=== PATIENT | female | born 1975 | race Caucasian/White ===

== ENCOUNTER 2025-10-13 08:14 | Day surgery (SDC) | payer MEDICARE, MEDICAID, SELFPAY ==
--- OUTSIDE RECORDS SUMMARY | 2025-10-02 14:51 | XMS_ITS | Clinical Summary ---
Author Organization [facility] [address] [facility] lding Address [address] [place] [address] Phone Care Team Providers Care Validation Leader Name Role Phone Franchesca Moulton MD Primary Care Prov ider Allergies Active Allergy Reactions Criticality Noted Date Comments Flu Virus Vaccine Tv 2015- (18 Yr And Up),Recomb Shortness of breath,Swelling,Wheezi ng High 10/07/2010 Throat felt like closing Swelling/edema Medications tiZANidine (ZANAFLEX) 4 mg tablet TAKE 1 TABLET BY MOUTH EVERY 8 HOURS NEEDED FOR MUSCLE SPASMS 04/09/20 24 Active triamcinolone (KENALOG) 0.025 % cream Apply to affected area 3-4x/day prn for irritation 05/18/20 23 Active Maria T-Lanta 200-200-20 mg/5 mL suspension TAKE 30 ML BY MOUTH 4 TIMES DAILY (BEFORE MEALS AND NIGHTLY). 1775 mL 11 10/22/20 24 Active medroxyPROGES TERone 150 mg/mL injection Inject 1 mL (150 mg total) into the shoulder, thigh, or buttocks every 3 (three) months. 1 mL 3 04/16/20 25 Active Ventolin HFA 90 mcg/actuation inhaler INHALE 2 PUFFS INTO THE LUNGS 4 TIMES DAILY NEEDED FOR COUGH OR WHEEZING. 54 g 06/02/20 25 Active sertraline (ZOLOFT) 100 mg tablet TAKE 2 TABLETS BY MOUTH EVERY DAY 180 tablet 1 07/11/20 25 Active sucralfate (CARAFATE) 1 gram tabletIndicat ions:Menopaus al flushing Take 1 tablet (1 g total) by mouth 4 (four) times a day (before meals and nightly). Take 1 Tablet by mouth 4 times daily for 360 days. 360 tablet 1 07/11/20 25 Active methenamine hippurate (HIPREX) 1 gram tablet TAKE 1 TABLET BY MOUTH TWICE A DAY WITH FOOD 180 tablet 1 07/14/20 25 Active ibuprofen (ADVIL,MOTRIN ) 600 mg tabletIndicat ions:Rectal abscess TAKE 1 TABLET BY MOUTH EVERY 6 HOURS NEEDED FOR PAIN 360 tablet 07/14/20 25 Active traZODone (DESYREL) 50 mg tabletIndicat ions:Generali zed anxiety disorder TAKE 1 TO 2 TABLETS BY MOUTH EVERY DAY AT NIGHT 180 tablet 08/11/20 25 Active estradiol-nor ethindrone (Mimvey) 1-0.5 mg per tablet Take 1 tablet by mouth 1 (one) time each day. 30 tablet 08/19/20 25 Active Additional Information Patient not taking.Reported on 09/10/2025 norethindrone -ethinyl estradiol (Fyavolv) 1-5 mg-mcg per tabletIndicat ions:Hot flashes Take 1 tablet by mouth 1 (one) time each day. 84 tablet 1 08/21/20 25 Active diclofenac (VOLTAREN) 1 % topical gel Apply 4 g topically 4 (four) times a day. 200 g 1 08/22/20 25 Active hydrOXYzine HCL (ATARAX) 50 mg tablet TAKE 1 TABLET BY MOUTH THREE TIMES A DAY NEEDED FOR ANXIETY 270 tablet 08/26/20 25 Active simethicone (Gas Relief Extra Strength) 125 mg chewable tablet TAKE 1 TABLET BY MOUTH 4 TIMES DAILY 360 tablet 08/26/20 25 Active evening primrose oil 500 mg Take daily in the evening 90 capsule 3 09/10/20 25 Active traMADoL (ULTRAM) 50 mg tabletIndicat ions:Rectal abscess Take 1 tablet (50 mg total) by mouth every 6 (six) hours if needed for severe pain. Max Daily Amount: 200 mg 45 tablet 09/29/20 25 Active LORazepam (ATIVAN) 0.5 mg tabletIndicat ions:Generali zed anxiety disorder Take 1 tablet (0.5 mg total) by mouth every 6 (six) hours if needed for anxiety. for anxiety 20 tablet 2 09/29/20 Active LORazepam (ATIVAN) 0.5 mg tablet TAKE 1 TABLET BY MOUTH EVERY 6 HOURS NEEDED FOR ANXIETY 20 tablet 2 05/13/20 25 025 Discontinued(Re order) traMADoL (ULTRAM) 50 mg tabletIndicat ions:Rectal abscess Take 1 tablet (50 mg total) by mouth every 6 (six) hours if needed for severe pain. Max Daily Amount: 200 mg 45 tablet 08/14/20 25 025 Discontinued cephalexin (KEFLEX) 500 mg capsule Take 1 capsule (500 mg total) by mouth 2 (two) times a day for 10 days. 20 each 09/10/20 25 025 mupirocin (BACTROBAN) 2 % ointment Apply topically 3 (three) times a day for 7 days. 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 Dr. Galvez Bx neg. Abnormal mammogram 05/27/2019 Overview (08/22/2024): 06/07- 6 month followup mammogram recommended, already referred to General Surgery and followup for consideration of clip/4mm septated cyst aspiration or bx. Sliding hiatal hernia 01/09/2019 Overview (08/22/2024): 2/- small, noted on barium swallow 01/09 Lap fundoplication Benign liver cyst 06/12/2018 Overview (08/22/2024): 06/06- liver cyst- 6 month sono 01/08- stable- followup 12 months Chronic cholecystitis 09/08/2016 Overview (08/22/2024): 01/07- per patient states removed ~2015 Chronic constipation 07/22/2016 Overview (08/22/2024): 01/07- referred to GI Abnormal urine finding 07/07/2014 Overview (08/22/2024): 07/03 positive cocaine. Obesity (BMI 30-39.9) 01/18/2012 Generalized anxiety disorder 05/29/2007 Overview (08/22/2024): ativan daily Constipation 07/19/2006 Overview (08/22/2024): 06/25 IMO update Backache 04/13/2006 Overview (08/22/2024): Chronic IMO update Depression 04/13/2006 Chronic GERD 04/13/2006 Overview (08/22/2024): EGD 09/04.. Non critical distal esophageal ring 09/07 EGD stable ring. esophagitis History of tobacco abuse 04/13/2006 Encounters Date Type Department Care Team Description 09/10/2025 8:15 AM EDT Office Visit Obstetrics and Gynecology [address] [address] Dylon Romero CNM Boil (Primary Dx) 09/10/2025 Telephone Obstetrics and Gynecology [facility] [address] [place] [address] Dylon Romero CNM 09/04/2025 Telephone Obstetrics and Gynecology [facility] [address] [place] [address] Dylon Romero CNM 08/27/2025 2:30 PM EDT Consult Orthopedic Surgery - [place] [address] [place] [address] Scarlett Garcia PA De Quervain's tenosynovitis (Primary Dx); Carpal tunnel syndrome of right wrist 08/22/2025 1:58 PM EDT - 08/22/2025 11:59 PM EDT Hospital Encounter XRAY - [facility] [address] [place] [address] Right wrist pain Discharge Disposition: Home or Self Care 08/22/2025 1:00 PM EDT Office Visit Adult [facility] [address] [place] [address] Milton Boss PA Right wrist pain (Primary Dx); Hot flashes 08/22/2025 Results Follow-Up Adult [facility] [address] [place] [address] Milton Boss PA 08/08/2025 10:45 AM EDT - 08/08/2025 11:59 PM EDT [facility] [address] [place] [phone] Upper respiratory tract infection, unspecified type Discharge Disposition: Home or Self Care 08/08/2025 10:30 AM EDT Office Visit [facility] [address] [place] [address] Milton Boss PA Upper respiratory tract infection, unspecified type (Primary Dx); History of tobacco abuse from Last 3 Months Immunizations Immunization Administration Dates Next Due Influenza trivalent, with pr eservative (Fluzone; Afluria) 6mo and older 10/06/2010 Moderna SARS-CoV-2 COVID-19, mRNA, LNP-S, preservative free 10/09/2021,04/06/2021,03/09/2021 Td Tetanus diptheria (Tdvax) 7yo and older 06/23 Td, Unspecified 06/23/2003 Tdap Tetanus diptheria acell ular pertussis (Boostrix; Adacel) 7yo and older 07/12/2012 Surgical History Surgery Date Site/Laterality Comments OTHER SURGICAL HISTORY 12/2019 PROCEDURE: LAPAROSCOPIC FUNDOPLASTY BREAST BIOPSY 06/03/2019 Right PROCEDURE: BX BREAST; PERC NEEDLE CORE W/IMAG GUID; COMMENT: neg OTHER SURGICAL HISTORY 07/11/2019 Right PROCEDURE: VT BX BREAST W/DEVICE 1ST LESION STEREOTACTIC GUID; COMMENT: apocine metaplastic microcysts ESOPHAGUS SURGERY SHOULDER ARTHROSCOPY W/ ROTATOR CUFF REPAIR Left Medical History Medical History Date Comments Tobacco use disorder DX:Tobacco use disorder Adjustment disorder with dep ressed mood DX:Adjustment disorder with depressed mood Heartburn DX:Heartburn Gonorrhea 01/2008 DX:Gonorrhea Esophageal reflux DX:Esophageal reflux Anxiety state, unspecified 10/25/2006 DX:An xiety state, unspecified Gonorrhea 03/12/2008 DX:Gonorrhea Chronic constipation 07/22/2016 DX:Chronic constipation Perirectal abscess 11/24/2020 DX:Perirectal abscess; COMMENT: Had surgery 2019 Status post laparoscopic Nis sen fundoplication DX:Status post laparoscopic Savana fundoplication Abdominal bloating DX:Abdominal bloating Gassiness DX:Gassiness Bloating DX:Bloating Shortness of breath Arthritis Joint pain Lumbar radiculopathy, chronic Family History Medical History Relation Name Comments Diabetes Father Heart attack Maternal Grandfather Hypertension Mother Other: Other Mother cripple diseas e unsure of name Heart attack Paternal Grandfather Breast cancer Neg Hx Colon cancer Neg Hx Ovarian cancer Neg Hx Pancreatic cancer Neg Hx Uterine cancer Neg Hx Relation Name Status Comments Brother Alive Daughter Alive Father Alive Maternal Grandfather Maternal Grandmother Mother Alive Paternal Grandfather Alive Paternal Grandmother Social History Tobacco Use Types Packs/Day Years Used Date Smoking Tobacco: Former Cigarettes 0.5 33.6 S tarted: 1992 Smokeless Tobacco: Never Tobacco Cessation:Counseling Given: Not Answered Alcohol Use Standard Drinks/Week Comments Yes 0 (1 standard drink = 0.6 oz pur e alcohol) occasionally Interpersonal Safety Answer Date Record ed Physical Abuse Unrecognized value 04/29/2025 Verbal Abuse Unrecognized value 04/29/2025 Comments No Sex and Gender Information Value Date Recorded Sex Assigned at Female 10/29/2024 7:37 AM EST Legal Sex Female 10:31 AM EST Gender Identity Female 10/29/2024 7:37 AM EST Sexual Orientation Straight 10/29/2024 7: 37 AM EST Obstetrics History Para Term AB IAB SAB Ectopic Multiple Livin g Live Births 1 1 1 1 1 Date Outcome GA Total Labor Labor/2nd/3rd Weight Sex Type Anes PTL Ninfa A1 A5 Name Clin 994 Term 40w 0d 3459 g (122 oz) F Vag-S pont Livin g Lucinda e Delivery Location:[facility] Last Filed Vital Signs Vital Sign Reading Time Taken Comments Blood Pressure 123/83 09/10/2025 8:05 AM EDT Pulse 70 09/10/2025 8:05 AM EDT Temperature 36.5 C (97.7 F) 08/22/2025 1:04 PM EDT Respiratory Rate 16 08/27/2025 2:24 PM EDT Oxygen Saturation 96% 08/08/2025 10:32 AM EDT Inhaled Oxygen Concentration - - Weight 79.8 kg (176 lb) 09/10/2025 8:05 AM EDT Height 152.4 cm (5') 08/27/2025 2:24 PM EDT Body Mass Index 34.37 08/27/2025 2:24 PM EDT Plan of Treatment Upcoming Encounters Date Type Department Care Team (Late st Contact Info) Description 10/09/2025 10:00 AM EST Appointment Radiology Department [address] [phone] 10/15/2025 11:30 AM EST Office Visit Adult Medicine [facility] [address] [place] [phone] Franchesca Moulton MD [address] [place] [address] 11/18/2025 2:45 PM EST Consult General Surgery - [address] [place] [address] Yoselin Apple MD [address] [place] [phone] Health Maintenance Due Date Last Done Comments Colorectal Cancer Screening: Colonoscopy 1976 Hepatitis A Vaccines (1 of 2 - Risk 2-dose series) 02/10/1995 Medicare Annual Wellness Visit 10/29/2022 Depression Screening 11/20/2024 11/08/2024 Breast Cancer Screening 05/03/2026 05/03/20, 05/03/2024, 04/02/2024, Additional history exists Cholesterol Screening (Lipid Panel) 12/11/2029 12/11/2024, 06/06/2018 Cervical Cancer Screening: HPV 01/27/2030 01/27/2025, 03/27/2019 Cervical Cancer Screening: Pap Smear 01/27/2030 01/27/2025, 01/27/2025, 03/27/2019, Additional history exists RSV Immunization Adult Patients (1 - 1-dose 75+ series) 02/10/2051 Influenza Vaccine Discontinued 10/06/2010 DTaP,Tdap,and Td Vaccines Discontinued 2011, 06/23/2003, 06/23/2003 HIV Screening Completed 05/01/2019 Hepatitis C Screening Completed 05/01/2019 COVID-19 Vaccine Discontinued 11/16/2021, , 04/06/2021, Additional history exists HIB Vaccines Aged Out No longer eligi ble based on patient's age to complete this topic HPV Vaccines Aged Out No longer eligi ble based on patient's age to complete this topic Hepatitis B Vaccines Discontinued IPV Vaccines Aged Out No longer eligi ble based on patient's age to complete this topic MMR Vaccines Aged Out No longer eligi ble based on patient's age to complete this topic Meningococcal ACWY Vaccine Aged Out N o longer eligible based on patient's age to complete this topic Meningococcal B Vaccine Aged Out No l onger eligible based on patient's age to complete this topic Pneumococcal Vaccine: Pediatrics (0 to 5 Years) and At-Risk Patients (6 to 49 Years) Discontinued RSV Immunization Patients Under 20 months Aged Out No longer eligible based on patient's age to complete this topic Social Influencers of Health Screening Discontinued Varicella Vaccines Aged Out No longer eligible based on patient's age to complete this topic Procedures Procedure Name Priority Date/Time Associated Diagnosis Comments VT INJECTION SINGLE TENDON SHEATH OR LIGAMENT APONEUROSIS Routine 08/27/2025 2:30 PM EDT De Quervain's tenosynovitis XR WRIST 3+ VIEWS RIGHT STAT 08/22/2025 2:04 PM EDT Right wrist pain XR CHEST 2 VIEWS STAT 08/08/2025 11:0 4 AM EDT Upper respiratory tract infection, unspecified type HPV WITH REFLEX GENOTYPE Routine 01/27/2025 12:40 PM EDT Encounter for annual routine gynecological examination LIPID PANEL WITH REFLEX TO DIRECT LDL Routine 12/11/2024 9:13 AM EST Hyperlipidemia, unspecified hyperlipidemia type DIAGNOSTIC MAMMOGRAPHY WITH CAD UNILATERAL Routine 05/03/2024 9:54 AM EDT Other abnormal and inconclusive findings on diagnostic imaging of breast HEPATITIS C SCREENING Routine 05/01/2019 HIV SCREENING Routine 05/01/2019 from Last 3 Months or Most Recently Relevant to Health Maintenance Results * VT INJECTION SINGLE TENDON SHEATH OR LIGAMENT APONEUROSIS (08/27/2025 2:30 PM EDT) Narrative Scarlett Garcia PA - 08/27/2025 2:30 PM EDT ANJU Kirkland 08/27/2025 3:04 PM Hand / UE Inj/Asp: R extensor compartment 1 for de Quervain's tenosynovitis Indications: pain Details: 25 G needle Medications: 0.5 mL lidocaine 1 %; 20 mg triamcinolone acetonide 40 mg/mL Informed Consent: Laterality: Right Relevant images/test results available and reviewed: yes Health status cleared: Yes Procedure/treatment, purpose, treatment alternatives, risks/potential complications and benefits explained: yes Risk/complications/benefits details: Risks of infection, thinning of the skin and temporary skin discoloration discussed. Discussed risks of temporary increased pain after injection and swelling and mild redness at injection site for couple days. Explained occasionally cortisone injection can cause facial flushing temporarily. Benefits pain management. For postop injection pain ice, Tylenol and/or NSAIDs if patient can take Patient questions answered: yes Patient agrees, verbalizes understanding, and wants to proceed: yes Consent given by: Patient Informed consent discussion completed by Physician/ISRRAEL with patient: Verbal Pre-procedure timeout performed: yes Scarlett RENE IN CLINIC/BEDSIDE ORDERABLES Final Result * XR Wrist 3+ Views Right (08/22/2025 2:04 PM EDT) Anatomical Region Laterality Modality Upper Extremities, Wrist Right Radiogr aphic Imaging 08/22/2025 2:15 PM EDT Impressions 08/22/2025 2:15 PM EDT Normal study. -------- FINAL REPORT -------- Dictated By: Jasmin Espinoza Dictated Date: 08/22/2025 14:15 ET Assigned Physician: Jasmin Espinoza Reviewed and Electronically Signed By: Jasmin Espinoza Signed Date: 08/22/2025 14:15 ET Workstation ID: [id number] Transcribed By: Self Edit Transcribed Date: 08/22/2025 14:15 ET Narrative 08/22/2025 2:15 PM EDT RIGHT WRIST VIEWS: 3 HISTORY: Wrist pain. Question ganglion. FINDINGS: There is no acute fracture, malalignment, joint effusion, soft tissue abnormality, or radiopaque foreign body. The carpal bones are normally aligned. Procedure Note Jasmin Espinoza MD - 08/22/2025 RIGHT WRIST VIEWS: 3 HISTORY: Wrist pain. Question ganglion. FINDINGS: There is no acute fracture, malalignment, joint effusion, soft tissueabnormality, or radiopaque foreign body. The carpal bones are normallyaligned. IMPRESSION: Normal study. -------- FINAL REPORT -------- Dictated By: Jasmin Espinoza Dictated Date: 08/22/2025 14:15 ET Assigned Physician: Jasmin Espinoza Reviewed and Electronically Signed By: Jasmin Espinoza Signed Date: 08/22/2025 14:15 ET Workstation ID: [id number] Transcribed By: Self Edit Transcribed Date: 08/22/2025 14:15 ET us Milton RENE IMG XR PROCEDURES Final Result * XR Chest 2 Views (08/08/2025 11:04 AM EDT) Anatomical Region Laterality Modality Body Radiographic Loni ging 08/08/2025 11:2 1 AM EDT Narrative 08/08/2025 11:22 AM EDT Chest, 2 views. History cough for 9 dates. No prior studies are available for comparison. There is no pneumothorax, pleural effusions or focal consolidations. Cardiomediastinal silhouette is unremarkable. CONCLUSIONS: No acute radiographic abnormalities in the chest. -------- FINAL REPORT -------- Dictated By: Gem Gordon Dictated Date: 08/08/2025 11:21 ET Assigned Physician: Gem Gordon Reviewed and Electronically Signed By: Gem Gordon Signed Date: 08/08/2025 11:22 ET Workstation ID: [id number] Transcribed By: Self Edit Transcribed Date: 08/08/2025 11:21 ET Procedure Note Gem Gordon MD - 08/08/2025 Chest, 2 views. History cough for 9 dates. No prior studies are available for comparison. There is no pneumothorax, pleural effusions or focal consolidations.Cardiomediastinal silhouette is unremarkable. CONCLUSIONS: No acute radiographic abnormalities in the chest. -------- FINAL REPORT -------- Dictated By: Gem Gordon Dictated Date: 08/08/2025 11:21 ET Assigned Physician: Gem Gordon Reviewed and Electronically Signed By: Gem Gordon Signed Date: 08/08/2025 11:22 ET Workstation ID: [id number] Transcribed By: Self Edit Transcribed Date: 08/08/2025 11:21 ET Milton RENE IMG XR PROCEDURES Final Result * HPV with reflex genotype (01/27/2025 12:40 PM EDT) HPV Negative Negative LAB MICROBIOLOGY METHOD 01/28/2025 1:11 PM EDT [facility] Brushing/Spatula Cervix uteri structure / Unknown 01/27/2025 12:40 PM EDT 01/28/2025 6:04 AM EDT [facility]NOST[facility] SAYDA JOSE Final Result [facility] [address] [place] [address], [place] [phone] * (ABNORMAL) Lipid panel with reflex to direct LDL (12/11/2024 9:13 AM EST) Cholesterol 188 0 - 200 mg/dL LAB CHEMISTRY METHOD 12/11/2024 2:[address] [facility] Triglycerides 153(H) 0 - 150 mg/dL LAB CHEMISTRY METHOD 12/11/2024 2:[address] [facility] HDL 51 >=40 mg/dL LAB CHEMISTRY METHOD 12/11/2024 2:[address] [facility] LDL Calculated 106(H) 0 - 100 mg/dL LAB CHEMISTRY METHOD 12/11/2024 2:[address] [facility] VLDL Cholesterol Vishal 30.6 mg/dL LAB CHEMISTRY METHOD 12/11/2024 2:[address] [facility] Non HDL Chol. (LDL+VLDL) 137 <145 mg/dL LAB CHEMISTRY METHOD 12/11/2024 2:[address] [facility] Chol/HDL Ratio 3.7 0.0 - 4.4 LAB CHEMISTRY METHOD 12/11/2024 2:33 PM [facility] Blood Venous blood specimen / Unknown Venipuncture / Unknown 12/11/2024 9:13 AM EST 12/11/2024 9:13 AM EST Franchesca Moulton MD LAB BLOOD ORDERABL ES Final Result [facility] [address] [place] [address], [place] [phone] * DIAGNOSTIC MAMMOGRAPHY WITH CAD UNILATERAL (05/03/2024 9:54 AM EDT) Anatomical Region Laterality Modality Mammography 04/04/2024 8:46 AM EDT Narrative 05/03/2024 10:15 AM EDT This is a summary report. The complete report is available in the patient's medical record. If you cannot access the medical record, please contact the sending organization for a detailed fax or copy. Unilateral left breast diagnostic digital mammogram; Left Breast Ultrasound History: Indeterminate cc view lateral middle depth asymmetry on screening mammogram of 04/02/2024. Technique/Findings: Spot compression cc view of the left breast utilizing tomosynthesis is obtained. Focal asymmetry just lateral to the nipple is a persistent finding. Ultrasound evaluation of the left breast from the 12 to 6 o'clock position was performed. Portions of all 4 quadrants were examined. There is no cyst or solid mass. Impression: No mammographic evidence of malignancy. Focal asymmetry left breast is unchanged on mammograms dating back to 01/05/2021. Negative left breast ultrasound. Bilateral mammogram in 1 year to resume in screening is recommended and has been scheduled. BI-RADS 2-benign Procedure Note Jasmin Espinoza MD - 09/04/2024 This is a summary report. The complete report is available in thepatient's medical record. If you cannot access the medical record, pleasecontact the sending organization for a detailed fax or copy. Unilateral left breast diagnostic digital mammogram; Left BreastUltrasound History: Indeterminate cc view lateral middle depth asymmetry on screeningmammogram of 04/02/2024. Technique/Findings: Spot compression cc view of the left breast utilizingtomosynthesis is obtained. Focal asymmetry just lateral to the nipple susan persistent finding. Ultrasound evaluation of the left breast from the 12 to 6 o'clock positionwas performed. Portions of all 4 quadrants were examined. There is no cyst or solid mass. Impression: No mammographic evidence of malignancy. Focal asymmetry leftbreast is unchanged on mammograms dating back to 01/05/2021. Negative leftbreast ultrasound. Bilateral mammogram in 1 year to resume in screening is recommended andhas been scheduled. BI-RADS 2-benign us Franchesca Moulton MD IMG BI PROCEDURES Final Result * HIV Screening (05/01/2019) HIV Screening abstracted Historical Provider HEALTH MAINTENANCE Final Result * Hepatitis C Screening (05/01/2019) Hepatitis C Screening abstracted us Historical Provider HEALTH MAINTENANCE Final Result from Last 3 Months or Most Recently Relevant to Health Maintenance Insurance MEDICARE MEDICAID - [place] Care Teams Validation Leader Relationship Specialty Start Date End Date Franchesca Moulton MD [address] [place] [id number] PCP - General Internal Medicine 06/10/19
--- OUTSIDE RECORDS SUMMARY | 2025-10-02 14:51 | XMS_ITS | Encounter Summary ---
Author Organization [facility] [place] [address] Care Team Providers Care Iron Erector Name Role Phone Franchesca Moulton MD Primary Care Prov ider Encounter Details Date Type Department Care Team (Late st Contact Info) Description 08/22/2025 Results Follow-Up Adult Medicine [facility] [address] [place] [address] Milton Boss PA [address] [place] [address] Social History Tobacco Use Types Packs/Day Years Used Date Smoking Tobacco: Former Cigarettes 0.5 33.6 S tarted: 1992 Smokeless Tobacco: Never Alcohol Use Standard Drinks/Week Comments Yes 0 [...] Orientation Straight 10/29/2024 7: 37 AM EST documented as of this encounter Plan of Treatment Upcoming Encounters Date Type Department Care Team (Late st Contact Info) Description 10/09/2025 10:00 AM EST Appointment Radiology Department - [address] [address] 10/15/2025 11:30 AM EST Office Visit Adult Medicine - [place] [address] [place] [phone] Franchesca Moulton MD [address] [place] [address] 11/18/2025 2:45 PM EST Consult General Surgery - [address] [phone] Yoselin Apple MD [address] [place] [phone] documented as of this encounter Visit Diagnoses Not on filedocumented in this encounter Additional Health Concerns Assessment Noted Time PHQ-9 Depression Total Score: 9 11/08/20 24 10:58 AM EST documented as of this encounter Care Teams Iron Erector Relationship Specialty Start Date End Date Franchesca Moulton MD [address] [place] [address] PCP - General Internal Medicine 06/10/19 documented as of this encounter
--- NOTE | 2025-10-08 12:34 | HO.ANESPROP2 ---
Documented by User: Ashanti Loomis NP 10/08/25 12:34 HPI - Anesthesia Eval Consult details Narrative: 50 yr old female for L5-S1 Lumbar Interlaminar Epidural Injection w/Fluoro PMFSH Active Problems Active Problems: All Active Problems Lumbar radiculitis (Acute) Past Medical History Medical History Personal history of COVID-19 Former cigarette smoker CTS (carpal tunnel syndrome) Ganglion cyst Back pain Constipation Smoker GERD (gastroesophageal reflux disease) Depression Surgical History Surgical History Hx of abdominal surgery History of gynecologic surgery History of rotator cuff surgery History of epidural steroid injection into lumbar spine History of epidural steroid injection into cervical spine Social History Social History Are you a primary healthcare associate to a significant other at home: No Do you presently have visiting nurse or other home services: No Patient Tobacco Use Status: Former Tobacco user Tobacco use type: Cigarette Use of substances other than those prescribed or required for medical reasons: No Have you been hit, kicked, punched, or otherwise hurt by someone within the past year? If so, by whom?: No Are you DNR?: No Advance Directives: No Advance Directives Information Provided: Yes Advance Directives on File: No Patient : No FDLMP: unknown : No Meds Allergies Allergy/AdvReac Type Severity Reaction Status Date / Time influenza virus vaccine qs AdvReac Unknown Unknown Verified 10/08/25 12:37 2015- (36 months up) (From Fluarix Quad 3361-5862 ()) Home Medications ?Medication ?Instructions ?Recorded ?Confirmed ?Last Taken ?Type albuterol sulfate 90 mcg/actuation 2 puff inhalation QID PRN wheezing 10/09/25 10/09/25 Unknown History aerosol inhaler (Ventolin HFA) estradiol-norethindrone acet 1 1 tab PO DAILY 10/09/25 10/09/25 Unknown History mg-0.5 mg tablet (Mimvey) hydroxyzine HCl 50 mg tablet 50 mg PO TID PRN Anxiety 10/09/25 10/09/25 Unknown History ibuprofen 600 mg tablet 600 mg PO QID PRN Pain 10/09/25 10/09/25 Unknown History lorazepam 0.5 mg tablet (Ativan) 0.5 mg PO DAILY PRN Anxiety 10/09/25 10/09/25 Unknown History sertraline 100 mg tablet 200 mg PO DAILY 10/09/25 10/09/25 Unknown History simethicone 125 mg capsule (Gas 125 mg PO DAILY PRN Abdominal 10/09/25 10/09/25 Unknown History Relief (simethicone)) Discomfort sucralfate 1 gram tablet 1 g PO QID 10/09/25 10/09/25 Unknown History tizanidine 4 mg capsule 4 mg PO Q8H PRN Muscle Spasm 10/09/25 10/09/25 Unknown History tramadol 50 mg tablet 50 mg PO Q6H PRN Pain 10/09/25 10/09/25 Unknown History trazodone 50 mg tablet 50 - 100 mg PO BEDTIME 10/09/25 10/09/25 Unknown History Documented by User: An Godinez MD 10/13/25 08:40 [facility] Past Medical History Medical History Personal history of COVID-19 Former cigarette smoker CTS (carpal tunnel syndrome) Ganglion cyst Back pain Constipation Smoker GERD (gastroesophageal reflux disease) Depression Surgical History Surgical History Hx of abdominal surgery History of gynecologic surgery History of rotator cuff surgery History of epidural steroid injection into lumbar spine History of epidural steroid injection into cervical spine History of Problems with Anesthesia: No Social History Social History Are you a primary healthcare associate to a significant other at home: No Do you presently have visiting nurse or other home services: No Patient Tobacco Use Status: Former Tobacco user Tobacco use type: Cigarette Use of substances other than those prescribed or required for medical reasons: No Have you been hit, kicked, punched, or otherwise hurt by someone within the past year? If so, by whom?: No Are you DNR?: No Advance Directives: No Advance Directives Information Provided: Yes Advance Directives on File: No Patient : No FDLMP: unknown : No Meds Allergies Allergy/AdvReac Type Severity Reaction Status Date / Time influenza virus vaccine qs AdvReac Unknown Unknown Verified 10/08/25 12:37 2015- (36 months up) (From Flu[employer] Quad 8597-3817 ()) Home Medications ?Medication ?Instructions ?Recorded ?Confirmed ?Last Taken ?Type albuterol sulfate 90 mcg/actuation 2 puff inhalation QID PRN wheezing 10/09/25 10/09/25 Unknown History aerosol inhaler (Ventolin HFA) estradiol-norethindrone acet 1 1 tab PO DAILY 10/09/25 10/09/25 Unknown History mg-0.5 mg tablet (Mimvey) hydroxyzine HCl 50 mg tablet 50 mg PO TID PRN Anxiety 10/09/25 10/09/25 Unknown History ibuprofen 600 mg tablet 600 mg PO QID PRN Pain 10/09/25 10/09/25 Unknown History lorazepam 0.5 mg tablet (Ativan) 0.5 mg PO DAILY PRN Anxiety 10/09/25 10/09/25 Unknown History sertraline 100 mg tablet 200 mg PO DAILY 10/09/25 10/09/25 Unknown History simethicone 125 mg capsule (Gas 125 mg PO DAILY PRN Abdominal 10/09/25 10/09/25 Unknown History Relief (simethicone)) Discomfort sucralfate 1 gram tablet 1 g PO QID 10/09/25 10/09/25 Unknown History tizanidine 4 mg capsule 4 mg PO Q8H PRN Muscle Spasm 10/09/25 10/09/25 Unknown History tramadol 50 mg tablet 50 mg PO Q6H PRN Pain 10/09/25 10/09/25 Unknown History trazodone 50 mg tablet 50 - 100 mg PO BEDTIME 10/09/25 10/09/25 Unknown History Exam Airway Mallampati Class: II (edentulous upper) TM Dist: >3cm Neck ROM: Full Denture: Upper Loose/Missing/Broken Teeth: Yes and Upper Heart: RRR Lungs: CTA Assessment and Plan Assessment Anesthesia Assessment: Anesthesia Plan Discussed and Chart Reviewed Final Anesthetic Review History of Problems with Anesthesia: No NPO: Yes ASA Class: II Final Preanesthetic Review: Meds/Allgs Chart Reviewed, Consent Obtained/Reviewed and Anes Risks/Benef Reviewed Patient Risk: Low Procedure Risk: Low Anesthetic Plan Anesthetic Plan: MAC: Disposition: Standard PACU
[2025-10-09 15:20] VITALS: BMI 33.2
--- NOTE | ~2025-10-13 | FL_ITS ---
EXAMINATION: FL GUIDANCE ONLY HISTORY: Procedural guidance COMPARISON: None available. TECHNIQUE: Fluoroscopy time: 7 seconds. Cumulative Dose: 2.00 mGy. DAP: 3 5.64 uGym2 Images: 1. FINDINGS: A single fluoroscopic spot film of the lumbar spine demonstrates a needle and contrast material overlapping the L5 vertebral body. FL/FL guidance in OR IMPRESSION: Fluoroscopy during procedure. Please see procedure report for additional information. Electronically signed by: Ranulfo Merrill MD 10/13/2025 11:31 AM [facility]
[2025-10-13 08:34] VITALS: BP 126/78; PULSE 65; RESP 16; TEMP 36.5; O2SAT 99
[2025-10-13] MEDS: Lactated Ringers 1,000 ML 100 ML IVCONT (08:41)
--- NOTE | 2025-10-13 08:47 | PC.NURSE ---
patient states she is [address] Godinze notified as urine is ordered. Per Dr. Godinez okay to cancel order.
--- NOTE | 2025-10-13 08:49 | MHC.SHP ---
Pre-Procedural Eval Section A - 24 Hr Update-Section A only Date of Service: 10/13/25 The patient is an INPATIENT: No Changes since office visit: No Cold of Flu in the past 2 weeks, No New Medical Problems, No Changes in Medication and No Patient answered all questions Section B - Complete if H&P > 30 days Chief Complaint: Radiculopathy, lumbar region Details of Present Illness: Chronic Lumbar radiculitis Relevant Family History (Specify if Yes): No Relevant Social History: None Present Medications: see Short Stay Collaborative assessment Medical History: No relevant PMH History of Previous Operations: No relevant previous surgery Allergies: Allergies Allergy/AdvReac Type Severity Reaction Status Date / Time influenza virus vaccine qs AdvReac Unknown Unknown Verified 10/08/25 12:37 2015- (36 months up) (From Flu[employer]ix Quad [id number] (PF)) Review of Systems Sugical H&P ROS: Negative: Constitution, Cardiovascular, Respiratory, Neurological, Psychiatric, Hem-Onc, Allergic/Immunologic, Gastrointestinal, Genitourinary, Musculoskeletal, Integumentary, Endocrine and Eyes/Ears/Nose/Throat Exam Surgical H&P Exam: Normal: HEENT, Normal: Heart, Normal: Lungs, Normal: Extremities, Normal: Abdomen, Normal: Skin and Normal: Neurological Plan Diagnosis/Plan: Unchanged I have reviewed the history and physical and performed a pertinent physical examination on my patient. No changes have occurred unless specified. Time Spent With Patient Time: Total time managing care of this patient today ____ minutes.
--- NOTE | 2025-10-13 08:50 | P.OP_ITS ---
Operative Note Operative Note Date of Service: 10/13/25 Narrative: Procedure performed: L5-S1 lumbar epidural steroid injection Preop diagnosis: Lumbar radiculitis Postop diagnosis: The same Anesthesia: Mac After informed consent was obtained patient was brought into the procedure room and placed in the prone position on the procedure table. Skin over the lumbar sacral area was prepped and draped in usual sterile manner. L5-S1 interlaminar space was visualized utilizing fluoroscopy. After skin was anesthetized with 1% lidocaine solution, 3.5 in 20 gauge Toughy needle was introduced percutaneously and advanced toward the epidural space at the indicated level. Loss of r esistance technique was utilized. Needle placement was verified utilizing 3 cc of Omnipaque contrast solution. Excellent epidural spread was visualized without evidence of vascular uptake. Total volume of 8 cc containing 2 cc of 1% lidocaine, 40 mg of triamcinolone and normal saline solution were injected after negative aspiration for blood and cerebrospinal fluid. Radiation exposure was documented in the chart.
[2025-10-13 09:25] VITALS: BP 144/80; PULSE 71; RESP 18; TEMP 37.1; O2SAT 95
[2025-10-13 09:40] VITALS: BP 153/81; PULSE 73; RESP 18; TEMP 36.9; O2SAT 95
== END 2025-10-13 10:12 | disposition home or self-care (01) ==
PROVIDERS: PCP Internal Medicine; Visit Provider Physical Medicine & Rehabilitation
PROC: (CPT 62323; principal; 2025-10-13 09:30)
DX: M54.16 Radiculopathy, lumbar region (principal); M48.062 Spinal stenosis, lumbar region with neurogenic claudication; R20.0 Anesthesia of skin; R20.2 Paresthesia of skin; Z79.1 Long term (current) use of non-steroidal anti-inflammatories (NSAID); Z79.82 Long term (current) use of aspirin; Z79.899 Other long term (current) drug therapy; Z87.891 Personal history of nicotine dependence; Z98.890 Other specified postprocedural states
CPT/HCPCS: 62323; J2003; J2250; J3010; J3301; Q9967

== ENCOUNTER → 2025-10-13 08:14 | Outpatient (BNV) | payer MEDICARE, MEDICAID, SELFPAY | PROVIDERS: PCP Internal Medicine; Visit Provider Physical Medicine & Rehabilitation | DX: M54.16 Radiculopathy, lumbar region (principal) | CPT/HCPCS: 62323 ==